=== PATIENT | female | born 1945 | race African-American/Black ===

== ENCOUNTER → 2018-03-05 | Outpatient (CLI) | payer OTHER | LOC: RAD 13:45 | DX: Z12.31 Encounter for screening mammogram for malignant neoplasm of breast (principal); R92.0 Mammographic microcalcification found on diagnostic imaging of breast ==

== ENCOUNTER → 2018-03-15 | Outpatient (CLI) | payer OTHER | LOC: RAD 02:15 | DX: N63.10 Unspecified lump in the right breast, unspecified quadrant (principal); R92.1 Mammographic calcification found on diagnostic imaging of breast ==

== ENCOUNTER → 2018-09-16 | Outpatient (CLI) | payer OTHER | LOC: RAD 03:02 | DX: N63.10 Unspecified lump in the right breast, unspecified quadrant (principal) ==

== ENCOUNTER → 2019-04-04 | Outpatient (CLI) | payer OTHER | LOC: BC 13:48 | DX: Z12.31 Encounter for screening mammogram for malignant neoplasm of breast (principal) ==

== ENCOUNTER → 2020-05-14 | Outpatient (CLI) | payer OTHER | LOC: RAD 12:55 | PROVIDERS: ATTEND Internal Medicine | DX: Z12.31 Encounter for screening mammogram for malignant neoplasm of breast (principal) ==

== ENCOUNTER → 2021-07-03 | Outpatient (CLI) | payer OTHER | LOC: BC 13:39 | PROVIDERS: ATTEND Internal Medicine | DX: Z12.31 Encounter for screening mammogram for malignant neoplasm of breast (principal) ==